=== PATIENT | male | born 1970 | race Caucasian/White ===

== ENCOUNTER → 2020-03-24 10:23 | Outpatient (CLI) | payer OTHER, SELFPAY ==
--- NOTE | ~2020-03-24 | XR_ITS ---
EXAMINATION: XR foot RT min 3V DATE: 03/24/2020 10:38 INDICATION: Right foot pain, initial encounter TECHNIQUE: Dorsoplantar, lateral, and 2 oblique views of the right foot were obtained. COMPARISON: None. FINDINGS: There appears to be a subacute, nondisplaced fracture of the fifth proximal phalanx. There is soft tissue swelling of the fifth toe. No additional acute osseous findings are evident. IMPRESSION: 1. Likely subacute fracture of the fifth proximal phalanx. Reviewed, dictated and finalized at location A.
== END ==
PROVIDERS: PCP Family Medicine; Visit Provider Nurse Practitioner Family
DX: M79.671 Pain in right foot (principal); S90.31XA Contusion of right foot, initial encounter; X58.XXXA Exposure to other specified factors, initial encounter
CPT/HCPCS: 73630

== ENCOUNTER → 2020-04-26 16:16 | Outpatient (CLI) | payer OTHER, SELFPAY ==
--- NOTE | ~2020-04-26 | XR_ITS ---
XR toe 5th RT min 2V DATE: 04/26/2020 16:37 INDICATION: Right foot pain TECHNIQUE: 3 views COMPARISON: 03/24/2020 right foot FINDINGS: There is a virtually nondisplaced linear oblique fracture through the talus is in proximal to mid shaft of the proximal phalanx of the fifth digit. The fracture line is less lucent since 2019, consistent with partial interval healing. IMPRESSION: Healing virtually nondisplaced fracture of the proximal phalanx Reviewed, dictated and finalized at location A. LIER DIVERSITY DIRECTOR
--- NOTE | ~2020-04-26 | XR_ITS ---
XR foot RT 2V DATE: 04/26/2020 16:37 INDICATION: Right foot pain TECHNIQUE: AP and lateral views COMPARISON: 04/03/2020 right FINDINGS: There is a transverse nondisplaced metaphyseal fracture of the proximal phalanx of the fift h digit; the fracture line is less distinct compared to 03/24/2020 There is slight periosteal reaction evident, consistent with interval partial healing. No other fracture or dislocation, periosteal reaction or bone destruction is noted otherwise. IMPRESSION: Healing nondisplaced metaphyseal fracture of the proximal phalanx of the fifth digit Reviewed, dictated and finalized at location A. ION PHOTOGRAPHER IMPRESSION: Healing nondisplaced metaphyseal fracture of the proximal phalanx o f the fifth digit
== END ==
PROVIDERS: PCP Family Medicine; Visit Provider Family Medicine
DX: S92.514A Nondisplaced fracture of proximal phalanx of right lesser toe(s), initial encounter for closed fracture (principal)
CPT/HCPCS: 73620; 73660

== ENCOUNTER → 2021-09-11 10:36 | Outpatient (CLI) | payer OTHER, SELFPAY ==
--- NOTE | ~2021-09-11 | XR_ITS ---
XR knee RT 3V DATE: 09/11/2021 11:01 INDICATION: Right knee pain TECHNIQUE: [place] and standing AP and lateral views COMPARISON: None FINDINGS: There is mild periarticular spurring of the patella consistent with osteoarthritis. No fra cture or dislocation, periosteal reaction or bone destruction is detected. Joint spaces are well pres erved. IMPRESSION: Mild patellofemoral osteoarthritis Reviewed, dictated and finalized at location A.
== END ==
PROVIDERS: PCP Family Medicine; Visit Provider Family Medicine
DX: M25.561 Pain in right knee (principal); M17.11 Unilateral primary osteoarthritis, right knee
CPT/HCPCS: 73562

== ENCOUNTER → 2023-04-16 08:50 | Outpatient (CLI) | payer OTHER, SELFPAY ==
--- NOTE | ~2023-04-16 | XR_ITS ---
XR finger 3rd RT min 2V DATE: 04/16/2023 09:14 INDICATION: Cellulitis TECHNIQUE: 4 views of third digit COMPARISON: None FINDINGS: There is soft tissue swelling, particularly along the distal. No fracture, dislocation, periosteal reaction or bone destruction, radiopaque foreign body or subcuta neous emphysema is noted. Minimal osteoarthritis at the distal interphalangeal joint. Dorsal aspect of the digit IMPRESSION: Distal soft tissue swelling; no fracture, dislocation, periosteal reaction or bone destru ction Reviewed, dictated and finalized at location L. IMPRESSION: Distal soft tissue swelling; no fracture, dislocation, periosteal r eaction or bone destruction
== END ==
PROVIDERS: PCP Family Medicine; Visit Provider Physician Assistant
DX: M79.644 Pain in right finger(s) (principal); L03.011 Cellulitis of right finger; M79.89 Other specified soft tissue disorders
CPT/HCPCS: 73140

== ENCOUNTER 2023-09-04 13:13 | Outpatient (CLI) | payer OTHER, SELFPAY ==
--- NOTE | ~2023-09-04 | CT_ITS ---
EXAMINATION: CT sinus wo con DATE: 09/04/2023 13:24 INDICATION: Chronic sinusitis TECHNIQUE: Computed tomography (CT) of the paranasal sinuses was performed without contrast. Iterativ e reconstruction technique was employed. Exam dose: 273.81 mGy-cm total exam DLP. COMPARISON: None FINDINGS: There is prominent leftward deviation of the nasal septum. Intralamellar cell and won bullosa of both middle nasal turbinates. There is prominent soft tissue swelling of the nasal turbinates. The ostiomeatal units are patent bilaterally. Minimal mucoperiosteal thickening in the frontoethmoid areas bilaterally. Mild mucoperiosteal thicken ing of the maxillary sinuses. The mastoid air cells are well-developed and aerated bilaterally. IMPRESSION: Prominent leftward deviation of nasal septum Intralamellar cell and won bullosa of both middle nasal turbinates Minimal soft tissue thickening at the frontoethmoid area; mild mucoperiosteal thickening of the maxil ernesto sinuses Reviewed, dictated and finalized at Location A. Reviewed, dictated and finalized at location B. IMPRESSION: Prominent leftward deviation of nasal septum Intralamellar cell and won bullosa of both middle nasal turbinates Minimal soft tissue thickening at the frontoethmoid area; mild mucoperiosteal t hickening of the maxillary sinuses
== END 2023-09-04 13:14 ==
LOC: MICIMG 13:14
PROVIDERS: PCP Otolaryngology; Visit Provider Otolaryngology
DX: J34.2 Deviated nasal septum (principal); J34.9 Unspecified disorder of nose and nasal sinuses; J32.9 Chronic sinusitis, unspecified
CPT/HCPCS: 70486

== ENCOUNTER → 2023-11-19 00:53 | Day surgery (SDC) | payer OTHER, SELFPAY ==
[2023-11-08 12:18] VITALS: BMI 24.3
--- NOTE | 2023-11-08 12:24 | PC.NURSE ---
Report to the Outpatient Waiting Room, entrance under the green pavilion located off [facility], at time _0900_ on date _11/19/2023_. Planned Procedure Time: _1100_. Time changes happen often and if your time is changed the preop area will call you the afternoon before. - You and your visitor will be asked to self-screen and do not enter if you have any COVID symptoms. - A mask is optional within the hospital at this time. Patients may have clear liquids (water, carbonated beverages, clear teas, apple juice) until 3 hours prior to surgery with a maximum of 20 ounces. - No food from midnight until time of surgery Take the following medications with a SIP of water the morning of surgery: __Flonase DO NOT STOP ANY OF YOUR OTHER PRESCRIPTION MEDICATIONS PRIOR TO SURGERY ?EXCEPT THE FOLLOWING Medications to discontinue per physician ____None Date to take last dose Please no make-up, nail serbian, hairspray, perfume, deodorant, or body powder the day of surgery. No jewelry (including any body piercings) or valuables the day of surgery, leave them at home. Please take a shower or bath the night before, or the morning of, surgery with an antibacterial soap. Wear comfortable, loose fitting clothing. - Jewelry must be removed prior to entering the operating room. Rings and piercings that are not removed may be cut off. - The hospital will not accept responsibility for valuables. - Please leave all valuables, including medications, at home the day of surgery. If you are going home after surgery, a licensed automobile drivers must drive you home. - NO public transportation without another adult if you receive anesthesia. - We recommend that an adult stay with you for 24 hours following discharge. - We also recommend that you do not drive, make important decision, drink alcoholic beverages, or take any drugs that were not prescribed by your health care provider for at least 24 hours after your discharge time. Follow any additional instructions given to you from your surgeon. If you or anyone in your household have experienced Covid symptoms in the past week, please notify your surgeon or the nurse liaison at the phone number below for possible testing. Telephone instructions given to __John__and asked if any additional questions and then verbalized understanding. Patient advised to call surgeon office or pre surgery nurse liaison [phone] if any additional questions.
--- NOTE | 2023-11-18 12:32 | P.HP_ITS ---
H&P: HPI History of Present Illness Date/Time: 11/18/23 12:32 Chief Complaint: Chronic sinusitis septal deviation recurrent sinusitis postnasal drainage turbinate hypertrophy Narrative: planned procedure [facility] Past Medical History Medical History Cervical pain (neck) Chronic pain in left foot Chronic pain of left ankle Peyronie's disease Scalp lesion Tarsal tunnel syndrome of left side Unspecified nondisplaced fracture of fifth cervical vertebra, initial encounter for closed fracture Viral labyrinthitis Family History Family History Father Family history of gout Social History Social History Smoking status: Never smoker Second hand tobacco smoke exposure: No Alcohol intake: current Drinks per week: 1 Substance use: never Living arrangements: with family Gender identity (if verbalized by the patient): Male Spiritual care concerns: No Meds Home Medications and Allergies Home Medications Medication Instructions Recorded Confirmed Type fluticasone propionate 50 1 - 2 spray intranasal BID #16 mL 08/15/23 11/08/23 Rx mcg/actuation nasal spray,suspension (Flonase Allergy Relief) sildenafil (pulm.hypertension) 20 20 mg PO BID PRN sexual activity 10/31/23 11/08/23 Rx mg tablet #30 tabs Allergies Allergy/AdvReac Type Severity Reaction Status Date / Time acetaminophen Allergy Unknown Unknown Verified 11/08/23 12:17 Exam Narrative: chronic appearing sinuses septal deviation turbinate hypertrophy Assessment and Plan Assessment and plan (1) Chronic sinusitis: Code(s): J32.9 - Chronic sinusitis, unspecified Status: Acute Assessment and Plan: plan OR bilateral image guided endoscopic maxillary antrostomies anterior ethmoidectomies endoscopic assisted septoplasty bilateral resection won bullosa bilateral inferior turbinate reduction with outfracture. Risks discussed bleeding infection damage to surrounding structures need for further procedures CSF leak brain brain damage failure to resolve symptoms change in vision time-out for time off school inherent risk of narcotic use septal perforation damage to any structure of the clavicle myself damage to any structure in the induction and maintenance of anesthesia failure of symptoms need for routine follow-up. (2) Hypertrophy of both inferior nasal turbinates: Code(s): J34.3 - Hypertrophy of nasal turbinates Status: Acute (3) Nasal septal deviation: Code(s): J34.2 - Deviated nasal septum Status: Acute (4) Nasal obstruction: Code(s): J34.89 - Other specified disorders of nose and nasal sinuses Status: Acute
[2023-11-19] VITALS (8 sets, daily range): BP systolic 112–139; BP diastolic 65–84; PULSE 64–83; RESP 10–18; TEMP 36.3–36.4; O2SAT 98–100
--- NOTE | 2023-11-19 07:19 | WPDHPUPDATE1 ---
History and Physical Update Update Date/Time: 11/19/23 07:19 History and Physical has been reviewed, including an updated exam of the patient. There are NO changes in the patient's condition. Risks, benefits, and alternatives have been discussed and questions answered. Patient agrees to proceed with procedure.
[2023-11-19] MEDS: LACTATED RINGERS 1,000 ML 30 ML IV CONT ×2 (09:50→14:05)
--- NOTE | 2023-11-19 10:28 | P.PNAN_ITS ---
Anes - Initial Pre Proc Eval Procedure: Operation Date: 11/19/23 11:00 Proposed Procedures p Image Guided Endoscopic Bilateral Maxillary Antrostomy, Bilateral Anterior Ethmoidectomy, Bilateral Inferior Turbinate Reduction with Outfracture, Bilateral Cammy Bullosa Resection - Jonn Flores MD s Endoscopic Assisted Septoplasty - Jonn Flores MD Date/Time: 11/19/23 10:28 Surgeon: Jonn Flores MD Pre Op Diagnosis: Chr Sinusitis, Cammy Bullosa Patient Data Age: 53 Gender: M Height: 1.73 m Weight: 68.75 kg Last Vital Signs Temp 36.3 C L 11/19/23 08:58 Pulse 68 11/19/23 08:58 Resp 18 11/19/23 08:58 BP 112/65 11/19/23 08:58 Pulse Ox 100 11/19/23 08:58 O2 Del Method Room Air 11/19/23 08:58 Allergies Allergy/AdvReac Type Severity Reaction Status Date / Time acetaminophen Allergy Unknown Unknown Verified 11/19/23 09:46 Home Medications Medication Instructions Recorded Confirmed Type fluticasone propionate 50 1 - 2 spray intranasal BID #16 mL 08/15/23 11/19/23 Rx mcg/actuation nasal spray,suspension (Flonase Allergy Relief) sildenafil (pulm.hypertension) 20 20 mg PO BID PRN sexual activity 10/31/23 11/19/23 Rx mg tablet #30 tabs Patient hx anesthesia problems: none Family hx anesthesia problems: none Results Review: All pre-operative results and documents have been reviewed as part of the pre- operative evaluation. [facility] Past Medical History Medical History Cervical pain (neck) Chronic pain in left foot Chronic pain of left ankle Peyronie's disease Scalp lesion Tarsal tunnel syndrome of left side Unspecified nondisplaced fracture of fifth cervical vertebra, initial encounter for closed fracture Viral labyrinthitis Surgical History Surgical History (Updated 11/19/23 @ 10:29 by Juan Alberto Caro MD) History of ankle surgery Family History Family History Father Family history of gout Social History Social History Smoking status: Never smoker Second hand tobacco smoke exposure: No Alcohol intake: current Drinks per week: 1 Substance use: never Living arrangements: with family Gender identity (if verbalized by the patient): Male Spiritual care concerns: No Anes - Eval Final PreProcedure Day of Procedure 11/19/23 10:28 Patient weight: normal Heart: regular rate and rhythm Lungs: clear to auscultation Airway: Mallampati scale class II Neurological: alert and oriented Last oral intake: >/= 8 hours ASA classification: II Emergent: no Anesthetic plan: proceed Anesthesia type and monitoring: general ETT and standard monitoring Results Review: All pre-operative results and documents have been reviewed as part of the pre- operative evaluation. Informed Consent: The patient's anesthetic plan and its attendant risks and benefits were discussed with the patient/family/POA. Questions were solicited and answers provided to the satisfaction of the patient/family/POA.
[2023-11-19] MEDS: ceFAZolin 2 GM/D5W 50 ML 2 GM/50 ML BAG IVPB (11:33)
[2023-11-19] MEDS: LIDO 1%/EPINEPHRINE 1:100,000 50 ML VIAL INFILTRATE (12:05)
[2023-11-19] MEDS: OXYMETAZOLINE HCL 0.05% NAS 15 ML BTL (*BKC) 1 SPRAY NASAL (12:07)
[2023-11-19] MEDS: MUPIROCIN 2% OINT 22 GM TUBE 1 APPLIC EACH NARE (12:14)
[2023-11-19] MEDS: HEMOSTATIC MATRIX (SURGIFLO with THROMBIN) KIT 1 KIT XX (13:36)
--- NOTE | 2023-11-19 14:23 | W.PM.PROC2 ---
Procedure Note - Detailed Date of Procedure 11/19/23 Pre-op Diagnosis Chr Sinusitis, Won Bullosa septal deviation turbinate hypertrophy nasal obstruction nasal congestion Post-op Diagnosis Same Procedure Performed image guided endoscopic bilateral maxillary antrostomies, bilateral anterior ethmoidectomies, endoscopic assisted septoplasty, inferior turbinate reduction bilaterally with outfracture Surgeon Jonn Flores MD Anesthesia General Indications see above Findings edema of the max is on the floor, won bullosa, minimal bleeding throughout the procedure, severely deviated leftward septum, large turbinates well reduced Description of Procedure patient identified consent verified preop. Patient brought to the operating room. Time-out performed. General anesthesia induced endotracheal tube secured. Patient prepped draped position procedure confirmed 2nd time-out performed. Image guidance initiated confirmed. Afrin-soaked pledgets placed for 5 minutes then removed. Total 50 cc 1% lidocaine 1 100,000 parts epinephrine checked in the bilateral nasal septum won bullosa and inferior turbinates [place] incision made left side left nasal septal flap elevated linear tears over the spur right nasal septal flap elevated after crossing over the crusting through septum with osteotome. No tears on the right side. Deviated septum removed osteotome Agustín Quigley forceps Eliz forceps. FloSeal placed FloSeal then suctioned out no bleeding in the septum Jun incision closed with 4 interrupted 5 0 fast gut sutures. Turbinates inferior [place] stab anteriorly with 15 blade reduced in the submucosal plane using microdebrider with [place] 2.5 mm blade then outfractured FloSeal placed in the stab incision good reduction minimal bleeding no bleeding after reduction and FloSeal. Won bullosa resected with sickle blade and microdebrider minimal bleeding if any. Middle turbinates then medialized. Maxillary antrostomies performed bilaterally under image guidance with double ball-tip probe straight through cut backbiter and microdebrider. No damage to nasolacrimal duct no damage to orbit great care was taken to ensure that the surgical os connected to the natural os. This was done with 30 degree scope and angled image guided suctions as well as double ball tip probe. Anterior ethmoidectomies performed with [place] and image guidance as well as microdebrider. At the end of the case procedure bilateral nasal passages copiously irrigated with sterile normal SS saline. Nova pack placed. Jackson splints placed ensured to be lateral to the middle turbinates. Sutured anteriorly using 3-0 mattress nylon suture. Blood loss 35 cc I performed all dictated portions procedure no complications care the patient given back to Anesthesiology patient taken to PACU. Estimated Blood Loss 35 Drains No Packing Yes (novapak) Pathology None sent Complications No immediate complications Condition Stable Disposition PACU [facility] Billing Surgery - Charge Forward: Surgery Billing
[2023-11-19] MEDS: oxyCODONE HCL (*CRX) 5 MG TAB IR PO (15:32)
== END | disposition home or self-care (01) ==
PROVIDERS: PCP Family Medicine; Visit Provider Otolaryngology
PROC: (CPT 31256; principal; 2023-11-19 11:00)
PROC: (CPT 30520; 2023-11-19 11:00)
DX: J32.9 Chronic sinusitis, unspecified (principal); J34.3 Hypertrophy of nasal turbinates; J34.2 Deviated nasal septum; J34.89 Other specified disorders of nose and nasal sinuses
CPT/HCPCS: 31256; 31254; 61782; 30520; 30140; A9270; J0690; J1100; J2250; J2405; J2704; J3010; J7050; J7120

== ENCOUNTER 2024-10-20 08:29 | Outpatient (CLI) | payer OTHER, SELFPAY ==
--- NOTE | ~2024-10-20 | MR_ITS ---
MRI of the left ankle Clinical history: Tarsal tunnel syndrome Technique: Coronal proton-density and proton-density fat-sat images, axial proton-density and proton- density fat-sat images, and sagittal proton-density and proton-density fat-sat images were acquired. Findings: Syndesmotic ligaments are intact. Anterior and posterior talofibular ligament, and calcaneo fibular ligament are intact. Deltoid ligament is intact. Medial flexor tendons, peroneal tendons, anterior extensor tendons, and Achilles tendon are intact. N o abnormal mass lesion or fluid collection in the tarsal tunnel region. No distinct MR evidence to martínez ggest tarsal tunnel syndrome. There is no osteochondral lesion of the talar dome. There is degenerative/cystic change along the pos terior subtalar facet. Prominent os trigonum present. There are small tibiotalar and subtalar joint e ffusions. Remaining joint spaces appear intact. Plantar fascia intact. Probable small ganglion cyst in the sinus Tarsi. No other soft tissue mass or fluid collection evident. Impression: No distinct evidence for tarsal tunnel syndrome. No mass lesion or fluid collection in the region of the tarsal tunnel. Medial flexor tendons appear intact. Degenerative change at the posterior subtalar facet with small tibiotalar and subtalar joint effusion s. Small ganglion cyst in the sinus Tarsi. Reviewed, dictated and finalized at location . Impression: No distinct evidence for tarsal tunnel syndrome. No mass lesion or fluid collec tion in the region of the tarsal tunnel. Medial flexor tendons appear intact. Degenerative change at the posterior subtalar facet with small tibiotalar and s ubtalar joint effusions. Small ganglion cyst in the sinus Tarsi.
== END 2024-10-20 08:30 | disposition home or self-care (01) ==
LOC: MICIMG 08:30
PROVIDERS: PCP Family Medicine; Visit Provider Orthopaedic Surgery
DX: M19.072 Primary osteoarthritis, left ankle and foot (principal); M25.472 Effusion, left ankle; M67.472 Ganglion, left ankle and foot
CPT/HCPCS: 73721